=== PATIENT | female | born 2000 | race Hispanic/Latino ===

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

== ENCOUNTER 2021-02-09 22:38 | Emergency (ER) | payer OTHER ==
[~2021-02-09] VITALS: Ht 165.1 cm; Wt 102.1 kg
[2021-02-09] MEDS ORDERED: LOTRIMIN AF12 GM TOP (23:25)
[2021-02-09] MEDS ORDERED: CLINDAMYCIN HC150 MG PO (23:25)
== END 2021-02-09 23:40 | disposition home or self-care (01) ==
LOC: ER 23:23
DX: B35.9 Dermatophytosis, unspecified (principal)
CPT/HCPCS: 99282

== ENCOUNTER 2024-10-13 12:43 | Emergency (ER) | payer SELFPAY ==
[~2024-10-13] VITALS: Ht 165.1 cm; Wt 103.1 kg
[~2024-10-13 12:43] MED LIST: AMOX TR-K CLV1 EAC2 PO; CEFDINIR300 MG PO; CLINDAMYCIN HC150 MG PO; CORTISPORIN-TC10 M1 LEFT EAR; LOTRIMIN AF12 GM TOP; MOTRIN200 MG PO; PYRIDIUM200 MG PO
[2024-10-13] MEDS: KETOROLAC TROMETHAMINE 60 MG/2 ML VIAL IM ONE (13:37)
[2024-10-13 14:44] VITALS: PULSE 86; RESP 16; TEMP 98.1; O2SAT 98
== END 2024-10-13 15:04 | disposition home or self-care (01) ==
LOC: FSED 12:47
DX: R51.9 Headache, unspecified (principal); S00.83XA Contusion of other part of head, initial encounter; M54.2 Cervicalgia; M54.6 Pain in thoracic spine; W10.8XXA Fall (on) (from) other stairs and steps, initial encounter; Y93.01 Activity, walking, marching and hiking; Y92.89 Other specified places as the place of occurrence of the external cause; F17.210 Nicotine dependence, cigarettes, uncomplicated
CPT/HCPCS: 72040; 72070; 81025; 96372; 99283; J1885